=== PATIENT | female | born 1960 | race Caucasian/White ===

== ENCOUNTER → 2020-03-10 | Outpatient (CLI) | payer OTHER ==
[~2020-03-10] MED LIST: OMNIPAQUE 350 MG/ML, 150 ML BOTTLE ONE
== END | disposition home or self-care (01) ==
LOC: RAD 17:49
PROVIDERS: ATTEND Family Medicine
DX: K76.89 Other specified diseases of liver (principal)
CPT/HCPCS: 74177; Q9967

== ENCOUNTER → 2020-03-16 | Outpatient (CLI) | payer OTHER | END | disposition home or self-care (01) | LOC: CARD 16:03 | PROVIDERS: ATTEND Internal Medicine Cardiovascular Disease | DX: J40 Bronchitis, not specified as acute or chronic (principal) | CPT/HCPCS: 36415; 94060; 94726; 94729 ==